=== PATIENT | female | born 1990 | race Caucasian/White ===

== ENCOUNTER 2018-07-11 20:33 | Inpatient (IN) | payer MEDICAID, OTHER ==
[2016-02-19 16:05] VITALS: BMI 30.7
[2018-07-11] MEDS ORDERED: Penicillin G 5 Million Unit Vial IVPB ONE ×2 (20:54→21:54)
--- NOTE | 2018-07-11 21:08 | OBADHP ---
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, denies STIs, normal paps Med: denies Surg: denies denies family history NKDA taking vitamins in this A/P: at 40+2 weeks, IOL for decreased Movements vitals stable, afebrile EFM/TOCO IVF/NPO Cervidil for IOL pain medication PRN FHR - Baseline A Provider: 150 IP Hx Assessment: The History has been Reviewed and is Current Vital Signs Provider: Reviewed; Within Normal Limits IP Chief Complaint: Uterine contractions; Decreased movement FHR Category Provider Fetus A: Category I Dilatation, Provider: FT Effacement, Provider: 50 Station, Provider: -3 IP Adm Impression: Term, intrauterine IP Admit Plan: Admit to unit; Initiate labor protocol
[2018-07-11] MEDS: Lactated Ringer's 1,000 ML IV SCH (21:15)
[2018-07-11 21:27] LABS: BASO % 0.3 % (0.0-2.0); EOS # 0.1 K/uL (0.0-0.7); HEMOGLOBIN 12.5 g/dL (11.0-16.0); LYMPH # 2.3 K/uL (1.0-4.3); MEAN CELL VOLUME 89.4 fL (81.0-99.0); MEAN CORPUSCULAR HEMOGLOBIN 30.7 pg (27.0-31.0); MEAN CORPUSCULAR HGB CONC 34.4 g/dL (33.0-37.0); MEAN PLATELET VOLUME 8.8 fL (7.2-11.7); MONO # 0.9 K/uL (0.0-0.8); MONO % 9.5 % (0.0-10.0); NEUT # 6.6 K/uL (1.8-7.0); NEUT % 66.2 % (50.0-75.0); NRBC % 0.1 % (0.0-2.0); RBC 4.07 Mil/uL (3.80-5.20); RED CELL DISTRIBUTION WIDTH 13.3 % (11.5-14.5); WHITE BLOOD COUNT 9.9 K/uL (4.8-10.8)
[2018-07-11] MEDS ORDERED: Nalbuphine HCL 10 mg/ml Ampule IVP ONE (21:44)
[2018-07-11] MEDS ORDERED: DiphenhydrAMINE 50 mg/ml Inj IVP STA (21:44)
[2018-07-12] MEDS: Lactated Ringer's 1,000 ML IV SCH ×2 (06:01→14:02)
--- NOTE | 2018-07-12 10:47 | OBPN ---
Datetime: 07/12/2018 10:39 IP Progress Impression: Normal progression of labor IP Procedures: Sterile Vag Exam IP Progress Plan: Continue present management; Cervical Ripening Membranes, Provider: Intact Contraction Comments Provider: 5 minutes FHR - Baseline A Provider: 135 Gestation - Est Wks by US: 40w 1d Presentation-Admit: Vertex IP Progress Note Comment: Patient examined and evaluated at 1015 hours. Patient received in bed, le ft lateral. (+) FM; denies contractions Cervical exam: as above. FOB present and supportive Assessment: 27 y.o. P1, 40w 1d adequate response to cervidil. (+) GBS on penicillin. Category 1 tr acing. Receptive to epidural. Clinically stable. Plan: 1) Cytotec 50 micrograms p.o. x 1 2) Possible pitocin 3) Continue penicillin 4) Anticipate vaginal delivery Vital Signs Provider: Reviewed; Within Normal Limits NICHD Accel Fetus A IP Provider: 15X15 FHR Category Provider Fetus A: Category I NICHD Variability Prov Fetus A: Moderate 6-25bpm Dilatation, Provider: 4 Effacement, Provider: 50 Station, Provider: -3 NICHD Decel Fetus A IP Provider: None
[2018-07-12] MEDS ORDERED: Bupivacaine HCl/FentaNYL Cit 100 ML EPI ONE (13:26)
[2018-07-12] MEDS ORDERED: Oxytocin 30 UNIT 30 UNITS/500 ML BAG IV ONE ×2 (17:22→18:16)
--- NOTE | 2018-07-12 17:23 | OBPN ---
Datetime: 07/12/2018 17:15 IP Progress Impression: Normal progression of labor IP Procedures: Sterile Vag Exam IP Progress Plan: Continue present management; Augmentation; Anticipate Vaginal Delivery Membranes, Provider: Intact Contraction Comments Provider: 2-3 FHR - Baseline A Provider: 135 Gestation - Est Wks by US: 40w 1d Presentation-Admit: Vertex IP Progress Note Comment: Patient S/P epidural - no c/o Ctx. (+) AFM Cervical exam: as above. Assessment: 27 y.o. P1, 40w 1d in active labor. GBS (+), on penicillin. Category 1 tracing . Clin ically stable. Plan: 1) Pitocin 2) Continue penicillin 3) Anticipate vaginal delivery NICHD Accel Fetus A IP Provider: 15X15 FHR Category Provider Fetus A: Category I NICHD Variability Prov Fetus A: Moderate 6-25bpm Dilatation, Provider: 8 Effacement, Provider: 90 Station, Provider: -3 NICHD Decel Fetus A IP Provider: None
[2018-07-12] MEDS ORDERED: Bupivacaine HCl 0.5% PF (30 ml) Inj ONE (18:33)
--- NOTE | 2018-07-12 19:37 | OBPN ---
Datetime: 07/12/2018 19:28 IP Progress Impression: Normal progression of labor IP Procedures: Artificial ROM IP Progress Plan: Continue present management; Anticipate Vaginal Delivery Membranes, Provider: Ruptured Contraction Comments Provider: 1-2 minutes FHR - Baseline A Provider: 135 Gestation - Est Wks by US: 40w 1d Presentation-Admit: Vertex IP Progress Note Comment: Patient received in LDR#1; S/P epidural Cervical exam: as above. AROM performed - copious amount of clear amnionic fluid obtained. Pitocon = 2 MUnits Assessment: 27 y.o. P1, 40w 1d at end of Stage 1 of labor. GBS (+) on penicillin. Category 1 anna marie ng. Clinically stable. Plan: 1) Anticipate vaginal delivery Vital Signs Provider: Reviewed; Within Normal Limits NICHD Accel Fetus A IP Provider: 15X15 FHR Category Provider Fetus A: Category I NICHD Variability Prov Fetus A: Moderate 6-25bpm Dilatation, Provider: 10 Effacement, Provider: 100 Station, Provider: 1 NICHD Decel Fetus A IP Provider: Early
--- NOTE | 2018-07-12 21:48 | OBDS ---
DELIVERY PERSONNEL Nurse It Software Engineer Certified: N/A Delivery Doctor: Ludwin Mckeon MD Scrub Nurse: N/A Stevedore Hold: Sho Kan RN Anesthesiologist: MD Sadaf Cleaners: MELINDA Resident: N/Lowell MATERNAL INFORMATION Delivery Anesthesia: Epidural Medications in Delivery: PITOCIN 30 UNITS IV, METHERGINE 1 AMP IM Estimated Blood Loss (ml): 500 Placenta Cultured: No Maternal Complications: None Provider Comments: Uncomplicated vaginal delivery, live male infant, direct OA position. Delayed umb ilical cord clampong. placed on mother's abdomen. Cord doubly clamped and cut. Spontaneous delivery of placenta - grossly intact, 3 vessel cord Uterine examination performed - uterus boggy. Aggressive massage performed; gush of blood noted. P itocin opened "wide". Methergine 0.2 mg given IM x 1. Repeat uterine exploration performed, uterus co nrtracted and firm at umbilicus. Cervix, vagina and perineum inspected - laceration as above; with repair. Hemostasis asssured. Infnat and mother bonding; both in stable conditon EBL 500 mL Weight 9lb 13oz 's 9/10 LABOR SUMMARY EDC: 07/11/2018 00:00 No. Babies in Womb: 1 Attempted: No Labor Anesthesia: Epidural LABOR INFORMATION Reason for Induction: Other Reason for Induction Other: Decrease movement Onset of Labor: 07/12/2018 10:15 Complete Dilatation: 07/12/2018 19:24 Cervical Ripening Agents: Cervidil; Cytotec @ Oxytocin: Augmentation Group B Beta Strep: Positive Antibiotics # of Doses: pen G Antibiotics Time of Last Dose: 07/12/2018 @ 1830 Steroids Given: None Reason Steroids Not Administered: Not Applicable MEMBRANES Membranes Rupture Method: Artificial Rupture of Membranes: 07/12/2018 19:24 Length of Rupture (hrs): 1.63 Amniotic Fluid Color: Clear Amniotic Fluid Amount: Moderate Amniotic Fluid Odor: Normal STAGES OF LABOR Stage 1 hrs: 9 Stage 1 min: 9 Stage 2 hrs: 1 Stage 2 min: 38 Stage 3 hrs: 0 Stage 3 min: 5 Total Time in Labor hrs: 10 Total Time in Labor min: 52 VAGINAL DELIVERY Episiotomy: None Laceration Extension: Second Degree Laceration Type: Perineal Laceration Repair: Yes Laceration Repair Note: 2-0 and 3-0 chromic in routine fashion. Hemostasis assured Patient tolerated procedure well Patient in stable condition Initial Vag Sponge Count: 10 X-RAYS,1 LAP Initial Vag Sharps Count: 0 Final Vag Sharps Count: 2 Sponge Count Correct: Yes Sharps Count Correct: Yes Count Comment: Correct BABY A INFORMATION Delivery Date/Time: 07/12/2018 21:02 Method of Delivery: Vaginal Born in Route : No : N/A Forceps: N/A Vacuum Extraction: N/A Shoulder Dystocia : No SHOULDER DYSTOCIA BABY A Delivery Date/Time: 07/12/2018 21:02 PRESENTATION/POSITION BABY A Presentation: Cephalic Cephalic Presentation: Vertex Vertex Position: Direct Occipital anterior PLACENTA INFORMATION BABY A Placenta Delivery Time : 07/12/2018 21:07 Placenta Method of Delivery: Spontaneous Placenta Status: Delivered SCORES BABY A Heart Rate 1 min: >100 bpm Resp Effort 1 min: Good Cry Reflex Irritability 1 min: Cough or Sneeze or Pulls Away Muscle Tone 1 min: Active Motion Color 1 min: Body [place], Extremities Blue Resuscitation Effort 1 min: N/A SCORE 1 MIN: 9 Heart Rate 5 min: >100 bpm Resp Effort 5 min: Good Cry Reflex Irritability 5 min: Cough or Sneeze or Pulls Away Muscle Tone 5 min: Active Motion Color 5 min: Completely [place] Resuscitation Effort 5 min: N/A SCORE 5 MIN: 10 INFANT INFORMATION BABY A Gestational Age at Delivery: 40.1 Gestational Status: Term Outcome : Liveborn Infant Condition : Stable Sex: Male IDENTIFICATION/MEDS BABY A ID Band Number: [id number] ID Band Location: Left Leg; Left Arm Sensor Applied: Yes Sensor Number: [id number] Sensor Location : Cord Clamp Vitamin K Given : Aquamephyton 1 mg IM; Left Thigh Erythromycin Given: Given Both Eyes WEIGHT/LENGTH BABY A Infant Birthweight (gms): 4450 Weight (lb): 9 Infant Weight (oz): 13 Length Inches: 21.00 Infant Length cms: 53.3 CORD INFORMATION BABY A No. Cord Vessels: #3 Nuchal Cord : N/A Cord Blood Taken: Yes Infant Suction: None ASSESSMENT BABY A Complications: None Physical Findings at Delivery: Within Normal Limits Infant Respirations: Appears Normal Bilingual Customer Service/ALS Called : No Care By: FRANCISCO SINGLETARY Transferred To: [facility]
[2018-07-12] MEDS ORDERED: Oxycodone/Acetaminophen 5/325 mg Tab PO PRN (21:49)
[2018-07-12] MEDS ORDERED: Benzocaine/Menthol 20%-0.5% Topical Spray (60 ml) TOP PRN (21:49)
[2018-07-13 07:19] LABS: BASO % 0.1 % (0.0-2.0); EOS % 0.1 % (0.0-4.0); HEMOGLOBIN 10.7 g/dL (11.0-16.0); LYMPH # 1.7 K/uL (1.0-4.3); MEAN CELL VOLUME 90.7 fL (81.0-99.0); MEAN CORPUSCULAR HEMOGLOBIN 31.3 pg (27.0-31.0); MEAN CORPUSCULAR HGB CONC 34.5 g/dL (33.0-37.0); MONO # 1.5 K/uL (0.0-0.8); MONO % 9.3 % (0.0-10.0); NEUT # 12.6 K/uL (1.8-7.0); NEUT % 79.5 % (50.0-75.0); RBC 3.4 Mil/uL (3.80-5.20); RED CELL DISTRIBUTION WIDTH 13.2 % (11.5-14.5)
[2018-07-13 07:20] LABS: WHITE BLOOD COUNT 15.8 K/uL (4.8-10.8)
[2018-07-13] MEDS: Multiple Vitamins Tab PO SCH (09:34)
--- NOTE | 2018-07-13 15:59 | OBPPN ---
Datetime: 07/13/2018 08:30 PP Pain Prov: Within normal limits PP Nausea Prov: Denies PP Flatus Prov: No PP BM Prov: No PP Breasts Prov: Not Done PP Heart Prov: Normal PP Lungs Prov: Normal PP Abdomen/Uterus Prov: Normal PP Lochia Prov: Normal PP Vulva/Perineum Prov: Normal PP Extremities Prov: Normal PP C/S Incision Prov: Not Applicable PP Progress Prov: Abnormal PP Comments Phys Exam Prov: Abdomen: mildly distended, non-tender; uterine fundus 3 fingerbreadths b elow umbilicus PP Impression Prov: Normal progression PP Plan Prov: Continue present management PP Progress Note Prov: 27 year old female PPD# 1 s/p SNVD. Patient was seen and examined at bedside. States she feels well. Pain lower abdominal pain is 7/10 this morning, relieved with Motrin . She reports lochia rubra. Patient is bottle feeding, as she states her milk has not come in. Patien t encouraged to continue to place baby on breast q2 hours and keep hydrated. She is tolerating her di et and ambulating. Denies flatus or bowel movement. Denies fever, chills, nausea, vomiting, chest jose n and shortness of breath. Assessment and plan: -PPD # 1 -S/P Repair of Perineal Laceration -H_H 10.7/30.8 from 12.5/36.4/ Asymptomatic -Blood type 0+ -Continue Motrin 600mg Q6H for pain management as needed -Continue regular diet -Encourage breast feeding -Encourage ambulation, hydration and continue colace for constipation -D/w patient Perineal care after suturesg Case discussed with Dr. Willoughby. Shawna Zaidi, PGY-1. IP PP Procedures: None Vital Signs Provider PP: Reviewed; Within Normal Limits
[2018-07-14 01:08] VITALS: O2SAT 99
[2018-07-14 08:41] VITALS: BP 116/69; PULSE 92; RESP 18; TEMP 99.5
[2018-07-14] MEDS: Multiple Vitamins Tab PO SCH (09:12)
--- NOTE | 2018-07-14 17:15 | OBPPN ---
Datetime: 07/14/2018 07:20 PP Pain Prov: Within normal limits PP Nausea Prov: Denies PP Flatus Prov: Yes PP BM Prov: No PP Breasts Prov: Not Done PP Heart Prov: Normal PP Lungs Prov: Normal PP Abdomen/Uterus Prov: Normal PP Lochia Prov: Normal PP Vulva/Perineum Prov: Not Done PP CVA Tenderness Prov: Not Done PP Extremities Prov: Normal PP C/S Incision Prov: Not Applicable PP Progress Prov: Abnormal PP Comments Phys Exam Prov: Abdomen: normal bowel sounds, non-tender, uterine fundus is 2 finger rebeca adths above umbilicus PP Impression Prov: Normal progression PP Plan Prov: Discharge PP Progress Note Prov: 27 year old female PPD# 2 s/p SNVD. Patient was seen and examined at bedside. States she feels well. Pain lower abdominal pain is 7/10 this morning. Patient advised to a sk for pain medicine. She reports decreasing lochia rubra. Patient is bottle feeding, as she states h er milk has not come in and does not wish to breast feed. Patient states she had not been drinking wa ter. Patient educated on importance of hydration and recommended to drink plenty of water. She is to lerating her diet and ambulating. Admits to flatus, but denies bowel movement. Denies fever, chills, nausea, vomiting, chest pain and shortness of breath. Assessment and plan: - PPD # 2 s/p NVD -Patient stable for discharge -H_H 10.7/30.8 from 12.5/36.4, Asymptomatic -Ferrous sulfate 325mg daily -Motrin 600mg Q6H for pain as needed -Encourage ambulation, hydration and continue colace for constipation -Sitz bath PRN -D/w patient Perineal care after sutures -Nothing in the vagina for 6 weeks -Follow up with your OB-hide buffer in 6 weeks or prn -Blood type 0+ Case discussed with Dr. Mckeon. Shawna Zaidi, PGY-1. Attending Note: patient seen and examined with the Resident. I agree with the above. Patient is in terested in the IUD for contraception. IP PP Procedures: None
--- NOTE | 2018-07-14 17:17 | OBDCSUM ---
Datetime: 07/14/2018 09:27 Discharged to, Provider: Home Follow up at, Provider: [facility] in [place] Disch Instr Activity: Normal activity Disch Instr Diet: Regular Discharge Diet restrict Prov: none Discharge Instructions, Provider: Routine instructions given Discharge Diagnosis, Provider: Term Delivered Discharge Time: 07/14/2018 14:00 Follow up in weeks, Provider: 08/25/18 Disch Referrals: None Contraception discussed, Prov: Yes Disch Activity Restrictions: No sexual activity; Nothing in vagina - Cisne, tampons, douche Discharge Comment, Provider: 27 year old female PPD# 2 s/p SNVD. Patient was seen and examin ed at bedside. States she feels well. Pain lower abdominal pain is 7/10 this morning. Patient advise d to ask for pain medicine. She reports decreasing lochia rubra. Patient is bottle feeding, as she st ates her milk has not come in and does not wish to breast feed. Patient states she had not been drink ing water. Patient educated on importance of hydration and recommended to drink plenty of water. She is tolerating her diet and ambulating. Admits to flatus, but denies bowel movement. Denies fever, ch ills, nausea, vomiting, chest pain and shortness of breath. Assessment and plan: - PPD # 2 s/p NVD -S/P Repair of Perineal Laceration -Patient stable for discharge -H_H 10.7/30.8 from 12.5/36.4, Asymptomatic -Ferrous sulfate 325mg daily -Motrin 600mg Q6H for pain as needed -Encourage ambulation, hydration and continue colace for constipation -Sitz bath PRN -D/w patient Perineal care after sutures -Nothing in the vagina for 6 weeks -Follow up with your OB-it consultant in 6 weeks or prn -Blood type 0+ Case discussed with Dr. Mckeon. Shawna Zaidi, PGY-1. Discharge Diagnosis Prov Other: Acute blood loss anemia Contraception counseling Contraception after Delivery: IUD
== END 2018-07-14 14:53 | disposition home or self-care (01) | DRG 373 ==
LOC: C.EROB 20:33 → C.4D 20:57 → C.4M 07-12 23:00
PROVIDERS: ADMIT Obstetrics & Gynecology; ATTEND Obstetrics & Gynecology
PROC: 10E0XZZ Delivery of Products of Conception, External Approach (ICD-10-PCS; principal; 2018-07-12)
PROC: 0KQM0ZZ Repair Perineum Muscle, Open Approach (ICD-10-PCS; 2018-07-12)
DX: O99.824 Streptococcus B carrier state complicating childbirth (principal); O99.02 Anemia complicating childbirth; Z3A.40 40 weeks gestation of pregnancy; O70.1 Second degree perineal laceration during delivery; O36.8130 Decreased fetal movements, third trimester, not applicable or unspecified; K59.00 Constipation, unspecified; Z30.09 Encounter for other general counseling and advice on contraception; O48.0 Post-term pregnancy; Z37.0 Single live birth